=== PATIENT | female | born 1970 | race Caucasian/White ===

== ENCOUNTER 2022-05-10 22:17 | Emergency (ER) | payer SELFPAY ==
[~2022-05-10] VITALS: Ht 165.1 cm; Wt 99.8 kg
[2022-05-10] MEDS ORDERED: LIDOCAINE HCL 2% 20 ML VIAL ONE (23:35)
[2022-05-10] MEDS ORDERED: TDAP DIPH,PERTUSS,TET VAC/PF 0.5 ML DISP.SYRIN IM ONE ×2 (23:40→23:45)
--- NOTE | 2022-05-10 23:55 | NUR ---
pt declined tetanus shot as she states she had it less than 3 years ago.
[2022-05-10] MEDS ORDERED: FLUC150T PO (23:56)
[2022-05-10] MEDS ORDERED: NAPR-1164 PO (23:56)
[2022-05-10] MEDS ORDERED: CEPH500T PO (23:56)
[2022-05-11] MEDS ORDERED: LIDOCAINE HCL 2% 20 ML VIAL IJ ONE
[2022-05-11 00:05] VITALS: BP 143/61
--- NOTE | 2022-05-11 00:05 | NUR ---
Patient discharged to home in stable condition. Written and verbal after care instructions given. Patient verbalizes understanding of instructions. Stressed follow up or return to ER for worsening s/s.
== END 2022-05-11 00:06 | disposition home or self-care (01) ==
LOC: ER 22:17
DX: S61.412A Laceration without foreign body of left hand, initial encounter (principal); W26.0XXA Contact with knife, initial encounter; Y92.89 Other specified places as the place of occurrence of the external cause; F17.210 Nicotine dependence, cigarettes, uncomplicated
CPT/HCPCS: 99283; 12001; J3490; 90715; A4663

== ENCOUNTER 2023-12-03 18:56 | Emergency (ER) | payer SELFPAY ==
[~2023-12-03] VITALS: Ht 177.8 cm; Wt 95.3 kg
[~2023-12-03 18:56] MED LIST: CEPH500T PO; FLUC150T PO
[2023-12-03 19:58] LABS: BASOPHILS % (AUTO) 0.4 % (0.0-2.0); EOSINOPHILS # (AUTO) 0.2 K/uL (0.0-0.7); EOSINOPHILS % (AUTO) 2.5 % (0.0-7.0); HEMATOCRIT 43.3 % (31.2-41.9); HEMOGLOBIN 14.7 g/dL (10.9-14.3); LYMPHOCYTES # (AUTO) 3.2 K/uL (0.8-4.8); LYMPHOCYTES % (AUTO) 46.4 % (20.5-51.5); MEAN CORPUSCULAR HEMOGLOBIN 34.2 uug (24.7-32.8); MEAN CORPUSCULAR HGB CONC 34 g/dL (32.3-35.6); MEAN CORPUSCULAR VOLUME 101.3 fL (75.5-95.3); MONOCYTES # (AUTO) 0.6 K/uL (0.1-1.30); MONOCYTES % (AUTO) 8.4 % (0.0-11.0); NEUTROPHILS # (AUTO) 2.9 K/uL (1.8-8.9); NEUTROPHILS % (AUTO) 42.3 % (38.5-71.5); PLATELET COUNT (AUTO) 163 K/uL (179-408); RED BLOOD CELL COUNT(AUTO) 4.28 MIL/uL (3.63-4.92); RED CELL DISTRIBUTION WIDTH 12.5 % (12.3-17.7); WHITE BLOOD COUNT (AUTO) 6.9 K/uL (3.8-11.8)
[2023-12-03] MEDS ORDERED: CEFTRIAXONE /D5W 50ML IVPB **ER PYXIS IV ONE (19:58)
[2023-12-03] MEDS ORDERED: KETOROLAC TROMETHAMINE 30 MG INJ ONE (19:58)
[2023-12-03 20:00] LABS: DIFFERENTIAL COMMENT 1
[2023-12-03] MEDS: CEFTRIAXONE 1 G in IV DEXTROSE 5% 50 ML IV ONE (20:09)
[2023-12-03] MEDS: KETOROLAC TROMETHAMINE 30 MG INJ IVP ONE (20:11)
[2023-12-03 20:12] LABS: BILIRUBIN,TOTAL 0.4 mg/dL (0.2-1.0); CALCIUM 9.2 mg/dL (8.5-10.1); CREATININE 0.7 mg/dL (0.6-1.3); POTASSIUM 3.5 mmol/L (3.5-5.1); TOTAL PROTEIN, SERUM 7.8 g/dL (6.4-8.2)
[2023-12-03 21:23] VITALS: BP 112/80; TEMP 98.2; O2SAT 98
== END 2023-12-03 21:24 | disposition left against medical advice (07) ==
LOC: ER 18:58
DX: L03.031 Cellulitis of right toe (principal); Z79.899 Other long term (current) drug therapy
CPT/HCPCS: 99284; 96365; 96375; 80053; 85025; 87040; 36415; 73630; 83605; J0696; J1885; A4606; A4663

== ENCOUNTER 2023-12-08 19:58 | Emergency (ER) | payer MEDICAID ==
[~2023-12-08] VITALS: Ht 177.8 cm; Wt 96.2 kg
[2023-12-08 21:11] LABS: BASOPHILS % (AUTO) 0.5 % (0.0-2.0); EOSINOPHILS # (AUTO) 0.1 K/uL (0.0-0.7); EOSINOPHILS % (AUTO) 0.9 % (0.0-7.0); HEMATOCRIT 44.6 % (31.2-41.9); HEMOGLOBIN 15.3 g/dL (10.9-14.3); LYMPHOCYTES % (AUTO) 35.2 % (20.5-51.5); MEAN CORPUSCULAR HEMOGLOBIN 34.3 uug (24.7-32.8); MEAN CORPUSCULAR HGB CONC 34 g/dL (32.3-35.6); MEAN CORPUSCULAR VOLUME 99.9 fL (75.5-95.3); MONOCYTES # (AUTO) 0.5 K/uL (0.1-1.30); MONOCYTES % (AUTO) 5.7 % (0.0-11.0); NEUTROPHILS # (AUTO) 4.9 K/uL (1.8-8.9); NEUTROPHILS % (AUTO) 57.7 % (38.5-71.5); PLATELET COUNT (AUTO) 181 K/uL (179-408); RED BLOOD CELL COUNT(AUTO) 4.46 MIL/uL (3.63-4.92); RED CELL DISTRIBUTION WIDTH 12.5 % (12.3-17.7); WHITE BLOOD COUNT (AUTO) 8.5 K/uL (3.8-11.8)
[2023-12-08 21:15] LABS: DIFFERENTIAL COMMENT 1
[2023-12-08 21:18] LABS: ERYTHROCYTE SEDIMENTATION RATE 22 MM/HR (0-20)
[2023-12-08 21:23] LABS: CALCIUM 9.4 mg/dL (8.5-10.1); CARBON DIOXIDE 28 mmol/L (21-32); CHLORIDE 102 mmol/L (98-107); CREATININE 0.7 mg/dL (0.6-1.3); GLUCOSE 89 mg/dL (74-106); POTASSIUM 3.9 mmol/L (3.5-5.1); SODIUM SERUM 140 mmol/L (136-145); UREA NITROGEN, BLOOD 22 mg/dL (7-18)
[2023-12-08 21:29] LABS: ALANINE AMINOTRANSFERASE 76 U/L (14-59); ALKALINE PHOSPHATASE 111 U/L (50-136); ASPARTATE AMINOTRANSFERASE 43 U/L (15-37); BILIRUBIN,TOTAL 0.6 mg/dL (0.2-1.0); TOTAL PROTEIN, SERUM 8.2 g/dL (6.4-8.2)
[2023-12-08 22:03] LABS: C-REACTIVE PROTEIN < 0.10 mg/dL (0.00-0.30)
[2023-12-08] MEDS ORDERED: SULF1TAB48 PO (22:06)
[2023-12-08] MEDS ORDERED: CEPH500C2 PO (22:06)
[2023-12-08 22:14] VITALS: BP 145/69; TEMP 97.8; O2SAT 99
== END 2023-12-08 22:17 | disposition home or self-care (01) ==
LOC: ER 20:00
DX: S92.411A Displaced fracture of proximal phalanx of right great toe, initial encounter for closed fracture (principal); M79.674 Pain in right toe(s); M79.89 Other specified soft tissue disorders; Z79.899 Other long term (current) drug therapy; V89.2XXA Person injured in unspecified motor-vehicle accident, traffic, initial encounter; Y93.89 Activity, other specified; Y92.89 Other specified places as the place of occurrence of the external cause; Y99.8 Other external cause status
CPT/HCPCS: 36415; 73660; 83605; 85025; 85610; 85651; 86140; A4606; A4663